=== PATIENT | male | born 1970 | race Two or more races ===

== ENCOUNTER → 2017-03-14 | Outpatient (CLI) | payer SELFPAY ==
[2017-03-14 12:08] LABS: ABSOLUTE EOSINOPHILS # (AUTO) 0.1 10^3/uL (0.0-0.6); ABSOLUTE LYMPHOCYTES (AUTO) 1.3 10^3/uL (0.5-4.7); ABSOLUTE MONOCYTES (AUTO) 0.5 10^3/uL (0.1-1.4); ABSOLUTE NEUT (AUTO) 3.3 10^3/uL (1.7-8.2); BASOPHILS % (AUTO) 0.4 % (0-2); EOSINOPHILS % (AUTO) 2.5 % (0-6); HEMATOCRIT 44.8 % (37.9-51.0); HEMOGLOBIN 14.8 g/dL (13.5-17.0); HGB HCT DIFFERENCE -0.4; LYMPHOCYTES % (AUTO) 24.9 % (13-45); MEAN CORPUSCULAR HEMOGLOBIN 31.9 pg (27.0-33.4); MEAN CORPUSCULAR HGB CONC 32.9 g/dL (32.0-36.0); MEAN CORPUSCULAR VOLUME 97 fl (80-97); MONOCYTES % (AUTO) 8.8 % (3-13); RED BLOOD COUNT 4.63 10^6/uL (4.35-5.55); RED CELL DISTRIBUTION WIDTH 13.7 % (11.5-14.0); SEGMENTED NEUTROPHILS % (AUTO) 63.4 % (42-78); WHITE BLOOD COUNT 5.2 10^3/uL (4.0-10.5)
--- NOTE | 2017-03-14 12:23 | RADIOLOGY REPORT (SQ) ---
EXAM DESCRIPTION: ACUTE ABDOMEN SERIES COMPLETED DATE/TIME: 03/14/2017 11:42 am REASON FOR STUDY: LOWER ABDOMINAL PAIN, UNSPECIFIED R10.30 LOWER ABDOMINAL PAIN, UNSPECIFIED COMPARISON: None. NUMBER OF VIEWS: Three views. TECHNIQUE: Frontal chest, supine abdomen and upright abdomen radiographic images acquired. LIMITATIONS: None. FINDINGS: CHEST: Lungs clear of infiltrates. FREE AIR: None. No abnormal gas collections. BOWEL GAS PATTERN: Nonobstructive pattern. No dilated loops or air fluid levels. CALCIFICATIONS: No suspicious calcifications. HARDWARE: None in the abdomen. SOFT TISSUES: No gross mass or suggestion of organomegaly. BONES: No acute fracture. No worrisome bone lesions. OTHER: No other significant finding. IMPRESSION: NO RADIOGRAPHIC EVIDENCE FOR ACUTE ABDOMINAL DISEASE. TECHNICAL DOCUMENTATION: JOB ID: [id number] [employer]- All Rights Reserved
[2017-03-14 12:32] LABS: ALANINE AMINOTRANSFERASE 46 U/L (21-72); ALBUMIN 4.4 g/dL (3.5-5.0); ALKALINE PHOSPHATASE 88 U/L (38-126); ANION GAP 12 (5-19); ASPARTATE AMINO TRANSFERASE 34 U/L (17-59); BILIRUBIN,DIRECT 0.3 mg/dL (0.0-0.4); BILIRUBIN,TOTAL 0.5 mg/dL (0.2-1.3); BLOOD UREA NITROGEN 16 mg/dL (7-20); CALCIUM 9.4 mg/dL (8.4-10.2); CARBON DIOXIDE 28 mmol/L (22-30); CHLORIDE 101 mmol/L (98-107); CREATININE RESULT 0.84 mg/dL (0.52-1.25); GLUCOSE 105 mg/dL (75-110); LIPASE 67.6 U/L (23-300); POTASSIUM 4.4 mmol/L (3.6-5.0); SODIUM 140.7 mmol/L (137-145)
== END ==
LOC: OD 11:07
PROVIDERS: ATTEND Nurse Practitioner Acute Care
DX: R10.30 Lower abdominal pain, unspecified (principal)
CPT/HCPCS: 36415; 74022; 80053; 83690; 85025

== ENCOUNTER → 2020-07-22 | Outpatient (CLI) | payer OTHER ==
[2020-07-22 08:47] LABS: ABSOLUTE EOSINOPHILS # (AUTO) 0.3 10^3/uL (0.0-0.6); ABSOLUTE LYMPHOCYTES (AUTO) 1.4 10^3/uL (0.5-4.7); ABSOLUTE MONOCYTES (AUTO) 0.5 10^3/uL (0.1-1.4); ABSOLUTE NEUT (AUTO) 2.9 10^3/uL (1.7-8.2); BASOPHILS % (AUTO) 0.8 % (0-2); EOSINOPHILS % (AUTO) 6.6 % (0-6); HEMATOCRIT 41.1 % (37.9-51.0); HEMOGLOBIN 14.2 g/dL (13.5-17.0); LYMPHOCYTES % (AUTO) 26.8 % (13-45); MEAN CORPUSCULAR HEMOGLOBIN 32.9 pg (27.0-33.4); MEAN CORPUSCULAR HGB CONC 34.5 g/dL (32.0-36.0); MEAN CORPUSCULAR VOLUME 95 fl (80-97); MONOCYTES % (AUTO) 10.5 % (3-13); PLATELET COUNT 315 10^3/uL (150-450); RED BLOOD COUNT 4.32 10^6/uL (4.35-5.55); RED CELL DISTRIBUTION WIDTH 12.8 % (11.5-14.0); SEGMENTED NEUTROPHILS % (AUTO) 55.3 % (42-78); TOTAL CELLS COUNTED % (AUTO) 100 %; WHITE BLOOD COUNT 5.2 10^3/uL (4.0-10.5)
[2020-07-22 08:48] LABS: APPEARANCE,URINE CLEAR; BILIRUBIN,URINE NEGATIVE (NEGATIVE); COLOR,URINE YELLOW; GLUCOSE, URINE NEGATIVE (NEGATIVE); KETONES,URINE NEGATIVE (NEGATIVE); LEUKOCYTE ESTERASE,URINE NEGATIVE (NEGATIVE); NITRITE,URINE NEGATIVE (NEGATIVE); PROTEIN,URINE NEGATIVE (NEGATIVE); URINE SPECIFIC GRAVITY 1.024; UROBILINOGEN,URINE NEGATIVE mg/dL (<2.0)
[2020-07-22 09:05] LABS: ALKALINE PHOSPHATASE 126 U/L (38-126); ANION GAP 11 (5-19); ASPARTATE AMINO TRANSFERASE 53 U/L (17-59); BILIRUBIN,TOTAL 0.6 mg/dL (0.2-1.3); BLOOD UREA NITROGEN 18 mg/dL (7-20); CALCIUM 9.1 mg/dL (8.4-10.2); CARBON DIOXIDE 22 mmol/L (22-30); CHLORIDE 104 mmol/L (98-107); CHOLESTEROL 176.13 mg/dL (0-200); GLUCOSE 105 mg/dL (75-110); POTASSIUM 4.5 mmol/L (3.6-5.0); TOTAL PROTEIN 7.7 g/dL (6.3-8.2); TRIGLYCERIDES 101 mg/dL (<150)
[2020-07-22 09:16] LABS: DIRECT LDL 116 mg/dL (<100)
--- OUTSIDE RECORDS SUMMARY | 2020-07-23 15:00 | XMS REPORT ---
:1970 Author Organization [facility] Address [facility] [place] [address] [place] [address] Care Team Providers Name Role Phone Unavailable Unavailable Unavailable Allergies, Adverse Reactions, Alerts Allergy Allergy Status Severity Reaction(s) Onset Inactive Treating C omments Name Type Date Date Clinician Peanut Allergy to Active Rash substance Peanut Allergy to Active Rash Oil substance Medications Ordered Filled Start Stop Current Ordering Indication Dosage Frequency Signature Comments Components Medication Medication Date Date Medication? Clinician (SIG) Name Name amoxicillin No amoxicilli 875MG 1PO n 875MG BID X 1PO BID X 10DAYS 10DAYS loratadine No 1 Q1D loratadine 10 mg 10 mg tablet Take tablet 1 tablet Take 1 every day tablet by oral every day route as by oral directed. route as directed. prednisone No 1 Q1D prednisone 20 mg 20 mg tablet Take tablet 1 tablet Take 1 every day tablet by oral every day route as by oral directed route as for 10 directed days. for 10 days. acyclovir No 1 Q8H acyclovir 400 mg 400 mg tablet Take tablet 1 tablet Take 1 every 8 tablet hours by every 8 oral route hours by as oral route directed. as directed. Problems This patient has no known problems. Procedures This patient has no known procedures. Results Test Description Test Time Test Comments Text Results Atomic Results Result Comments COMPREHENSIVE METABOLIC PANEL\S\L 2017-03-14 11:25:00 Test Item Value Reference Range Comments EGFR,NON (test code = GFRN) > 60 >60 POTASSIUM (test code = K) 4.4 mmol/L 3.6-5.0 ALANINE AMINOTRANSFERASE (test code = ALT) 46 U/L 21-72 SODIUM (test code = NA) 140.7 mmol/L 137-145 ASPARTATE AMINO TRANSFERASE (test code = AST) 34 U/L 17 -59 CHLORIDE (test code = CL-1) 101 mmol/L 98-107 BILIRUBIN,TOTAL (test code = TBIL) 0.5 mg/dL 0.2-1.3 CALCIUM (test code = CA) 9.4 mg/dL 8.4-10.2 CREATININE RESULT (test code = CREA) 0.84 mg/dL 0.52-1.25 BILIRUBIN,DIRECT (test code = BC) 0.3 mg/dL 0.0-0.4 ANION GAP (test code = ANION) 12 5-19 TOTAL PROTEIN (test code = TP) 8.0 g/dL 6.3-8.2 GLUCOSE (test code = GLU) 105 mg/dL 75-110 ALKALINE PHOSPHATASE (test code = ALKP) 88 U/L 38-126 EGFR, (test code = GFRAA) > 60 >60 BLOOD UREA NITROGEN (test code = BUN) 16 mg/dL 7-20 CARBON DIOXIDE (test code = CO2) 28 mmol/L 22-30 ALBUMIN (test code = ALB) 4.4 g/dL 3.5-5.0 CBC WITH DIFF\S\[id number] 11:25:00 Test Item Value Reference Range Comments ABSOLUTE NEUT (AUTO) (test code = NE#) 3.3 10 3/uL 1.7-8.2 MEAN CORPUSCULAR HEMOGLOBIN (test code = MCH) 31.9 pg 27 .0-33.4 SEGMENTED NEUTROPHILS % (AUTO) (test code = 63.4 % 42-7 8 SEG%) ABSOLUTE BASOPHILS # (AUTO) (test code = BA#) 0.0 10 3/uL 0. 0-0.2 EOSINOPHILS % (AUTO) (test code = EO%) 2.5 % 0-6 MEAN CORPUSCULAR HGB CONC (test code = MCHC) 32.9 g/dL 32. 0-36.0 RED BLOOD COUNT (test code = RBC) 4.63 10 6/uL 4.35-5.55 LYMPHOCYTES % (AUTO) (test code = LY%) 24.9 % 13-45 PLATELET COUNT (test code = PLT) 280 10 3/uL 150-450 WHITE BLOOD COUNT (test code = WBC) 5.2 10 3/uL 4.0-10.5 ABSOLUTE EOSINOPHILS # (AUTO) (test code = EO#) 0.1 10 3/uL 0.0-0.6 MEAN CORPUSCULAR VOLUME (test code = MCV) 97 fl 80-97 HEMATOCRIT (test code = HCT) 44.8 % 37.9-51.0 BASOPHILS % (AUTO) (test code = BA%) 0.4 % 0-2 HEMOGLOBIN (test code = HGB) 14.8 g/dL 13.5-17.0 ABSOLUTE LYMPHOCYTES (AUTO) (test code = LY#) 1.3 10 3/uL 0. 5-4.7 MONOCYTES % (AUTO) (test code = MO%) 8.8 % 3-13 RED CELL DISTRIBUTION WIDTH (test code = RDW) 13.7 % 11 .5-14.0 ABSOLUTE MONOCYTES (AUTO) (test code = MO#) 0.5 10 3/uL 0.1- 1.4 LIPASE\S\[id number] 11:25:00 Test Item Value Reference Range Comments LIPASE (test code = LIPA) 67.6 U/L 23-300 Encounters Start End Encounter Admission Attending Care Care Encounter Date/Time Date/Time Type Type Clinicians Facility Department ID 2020-07-20 2020-07-20 Ed Benavides [id number] 00:00:00 00:00:00 MD Bob: [facility] [place] [address] [place] [address], Ph. Social History Smoking Status Start Date Stop Date Never Smoker Vital Signs This patient has no known vital signs. Hospital Discharge Instructions None recorded. Discussion Note: None recorded. Patient educational handouts: No information available.
== END ==
LOC: OD 07:55
PROVIDERS: ATTEND Family Medicine
DX: Z13.9 Encounter for screening, unspecified (principal)
CPT/HCPCS: 36415; 80053; 80061; 81001; 82306; 83036; 84443; 85025